=== PATIENT | male | born 1955 | race African-American/Black ===

== ENCOUNTER 2017-04-11 15:06 | Inpatient (IN) | payer MEDICAID ==
[~2017-04-11] VITALS: Ht 167.6 cm; Wt 79.8 kg
[2017-04-11] MEDS ORDERED: KETOROLAC 30MG/ML VIAL IV STA (16:10)
[2017-04-11 16:30] LABS: CHLORIDE 109 mEq/L (98-107)
[2017-04-11 16:32] LABS: INR 1.1; PROTHROMBIN TIME 11.2 sec
[2017-04-11 16:38] LABS: CARBON DIOXIDE 30 mEq/L (21-32); HEMOGLOBIN. 12.6 g/dL (14.0-18.0); MEAN CORPUSCULAR VOLUME 85.1 fL (80.0-94.0); PLATELET 169 x1000/uL (130-400); RED CELL DISTRIBUTION WIDTH 13.4 % (11.6-14.6)
[2017-04-11 16:43] LABS: HEMATOCRIT. 37.9 % (42.0-52.0); MEAN CORPUSCULAR HEMOGLOBIN 28.4 pg (28.0-32.0); MEAN PLATELET VOLUME 8.8 fl (7.4-10.4); RED BLOOD CELL COUNT 4.45 mill/uL (4.7-6.1)
[2017-04-11 17:16] LABS: ATYPICAL LYMPHOCYTES 3
[2017-04-11 17:17] LABS: PLATELET ESTIMATE NORMAL
[2017-04-11] MEDS: AMLODIPINE 10MG TABLET PO SCH (21:24)
[2017-04-11] MEDS ORDERED: ONDANSETRON HCL 4MG/2ML VIAL IV PRN (23:15)
[2017-04-11] MEDS ORDERED: MAGNESIUM/ALUMINUM HYDROXIDE/SIMETHICONE 30ML UDC PO PRN (23:15)
[2017-04-11] MEDS ORDERED: IPRATROPIUM/ALBUTEROL 0.5-3(2.5)MG/3ML NEB INH PRN (23:15)
[2017-04-11] MEDS ORDERED: HYDROCODONE/ACETAMINOPHEN 5/325MG TABLET PO PRN (23:15)
[2017-04-11] MEDS ORDERED: ACETAMINOPHEN 650MG/20.3ML UDC GT PRN (23:15)
[2017-04-11] MEDS ORDERED: GUAIFENESIN 200MG/10ML SUGAR FREE UDC PO PRN (23:15)
[2017-04-11] MEDS ORDERED: ACETAMINOPHEN 650MG SUPP PR PRN (23:15)
[2017-04-12] VITALS: BP 150/97
[2017-04-12 00:13] VITALS: BP 150/97
[2017-04-12] MEDS: NA PHOS,M-B/NA PHOS,DI-BA ENEMA 118ML PR PRN (00:40)
[2017-04-12] MEDS: ACETAMINOPHEN 325MG TABLET PO PRN ×3 (02:36→22:26)
[2017-04-12] MEDS ORDERED: GABA-290 PO (02:44)
[2017-04-12] MEDS ORDERED: IBUP-1509 PO (02:45)
[2017-04-12] MEDS ORDERED: FLUO-124 PO (02:45)
[2017-04-12] MEDS ORDERED: TRAZ-129 PO (02:45)
[2017-04-12 04:00] VITALS: BP_SYST 121; BP_SYST 160; BP_DIAS 101; BP_DIAS 72
[2017-04-12] MEDS: SODIUM CHLORIDE 0.9% INJ 3ML FLUSH IVF SCH ×3 (05:28→21:50)
[2017-04-12 07:40] LABS: TROPONIN I 0.06 ng/mL (0.00-0.04)
[2017-04-12 08:00] VITALS: BP 143/86
[2017-04-12 08:12] LABS: HEMATOCRIT. 37.2 % (42.0-52.0); HEMOGLOBIN. 12.3 g/dL (14.0-18.0); MEAN CORPUSCULAR HEMOGLOBIN 28.2 pg (28.0-32.0); MEAN CORPUSCULAR VOLUME 84.9 fL (80.0-94.0); PLATELET 162 x1000/uL (130-400); RED BLOOD CELL COUNT 4.38 mill/uL (4.7-6.1); RED CELL DISTRIBUTION WIDTH 13.3 % (11.6-14.6)
[2017-04-12 08:24] LABS: CARBON DIOXIDE 28 mEq/L (21-32); CHLORIDE 107 mEq/L (98-107)
[2017-04-12] MEDS: AMLODIPINE 10MG TABLET PO SCH (09:10)
[2017-04-12 10:48] LABS: PLATELET ESTIMATE NORMAL
[2017-04-12] MEDS ORDERED: POTASSIUM CHLORIDE 20MEQ TABLET SR PO SCH (13:30)
[2017-04-12 15:14] LABS: CLARITY URINE CLEAR (CLEAR); COLOR URINE YELLOW (YELLOW); GLUCOSE URINE NEGATIVE (NEGATIVE); KETONES URINE NEGATIVE (NEGATIVE); LEUKOCYTE ESTERASE URINE NEGATIVE (NEGATIVE); NITRITE URINE NEGATIVE (NEGATIVE); OCCULT BLOOD URINE NEGATIVE (NEGATIVE); PROTEIN URINE NEGATIVE (NEGATIVE); SPECIFIC GRAVITY URINE 1.017 (1.005-1.030); UROBILINOGEN URINE 0.2 E.U./dL (0.2-1.0)
[2017-04-12 15:53] LABS: *AMPHETAMINES SCREEN URINE NEGATIVE (NEGATIVE); *BARBITURATES SCREEN URINE NEGATIVE (NEGATIVE); *BENZODIAZEPINES SCREEN URINE NEGATIVE (NEGATIVE); *COCAINE SCREEN URINE NEGATIVE (NEGATIVE); CANNABINOID URINE SCREEN PRESUMTIVE POSITIVE (NEGATIVE); METHADONE URINE SCREEN NEGATIVE (NEGATIVE); OPIATES URINE SCREEN NEGATIVE (NEGATIVE); PHENCYCLIDINE URINE SCREEN NEGATIVE (NEGATIVE)
[2017-04-12 16:00] VITALS: BP 125/84
[2017-04-12 16:36] LABS: TROPONIN I 0.02 ng/mL (0.00-0.04)
[2017-04-12 20:00] VITALS: BP 126/88
[2017-04-13] VITALS: BP 135/79
[2017-04-13 04:00] VITALS: BP 130/84
[2017-04-13] MEDS: SODIUM CHLORIDE 0.9% INJ 3ML FLUSH IVF SCH ×3 (05:51→23:07)
[2017-04-13 08:00] VITALS: BP 130/91
[2017-04-13] MEDS: AMLODIPINE 10MG TABLET PO SCH (08:21)
[2017-04-13] MEDS: ACETAMINOPHEN 325MG TABLET PO PRN ×2 (08:23→14:56)
[2017-04-13 12:00] VITALS: BP 126/75
[2017-04-13 16:00] VITALS: BP 128/79
[2017-04-13 20:00] VITALS: BP 139/85
[2017-04-14] VITALS: BP 133/82
[2017-04-14] MEDS: ACETAMINOPHEN 325MG TABLET PO PRN ×3 (01:19→23:31)
[2017-04-14 04:00] VITALS: BP 161/87
[2017-04-14] MEDS: SODIUM CHLORIDE 0.9% INJ 3ML FLUSH IVF SCH ×3 (06:43→21:09)
[2017-04-14 08:00] VITALS: BP 141/93
[2017-04-14] MEDS: AMLODIPINE 10MG TABLET PO SCH (08:02)
[2017-04-14 08:39] LABS: HEMOGLOBIN. 13.9 g/dL (14.0-18.0); MEAN CORPUSCULAR HEMOGLOBIN 28.2 pg (28.0-32.0); MEAN CORPUSCULAR VOLUME 85.1 fL (80.0-94.0); MEAN PLATELET VOLUME 8.5 fl (7.4-10.4); PLATELET 196 x1000/uL (130-400); RED BLOOD CELL COUNT 4.94 mill/uL (4.7-6.1); RED CELL DISTRIBUTION WIDTH 13.3 % (11.6-14.6)
[2017-04-14 08:55] LABS: CARBON DIOXIDE 33 mEq/L (21-32); CHLORIDE 100 mEq/L (98-107); TROPONIN I 0.02 ng/mL (0.00-0.04)
[2017-04-14 10:53] LABS: PLATELET ESTIMATE NORMAL
[2017-04-14 12:00] VITALS: BP 138/88
[2017-04-14 16:00] VITALS: BP 134/85
[2017-04-14] MEDS: DEXAMETHASONE 4MG/ML 1ML VIAL IV SCH ×2 (18:51→23:31)
[2017-04-14 20:00] VITALS: BP 128/90
[2017-04-15] VITALS (29 sets, daily range): BP systolic 93–189; BP diastolic 64–115
[2017-04-15] MEDS: SODIUM CHLORIDE 0.9% INJ 3ML FLUSH IVF SCH ×3 (06:08→21:25)
[2017-04-15] MEDS: DEXAMETHASONE 4MG/ML 1ML VIAL IV SCH ×3 (06:09→17:42)
[2017-04-15] MEDS: AMLODIPINE 10MG TABLET PO SCH (09:00)
[2017-04-15] MEDS ORDERED: GELATIN SPONGE,ABSORBABLE SZ 100 ONE (12:41)
[2017-04-15] MEDS ORDERED: NORMAL SALINE 0.9% 10 ML SYR ONE ×2 (12:42→15:34)
[2017-04-15] MEDS ORDERED: LIDOCAINE HCL/EPINEPHRINE 0.5%-EPI 1:200,000 50 ML VIAL INFIL ONE ×2 (12:42→15:34)
[2017-04-15] MEDS ORDERED: THROMBIN (BOVINE) 5000 UNITS/VIAL TOP ONE ×2 (12:42→15:33)
[2017-04-15] MEDS ORDERED: BACITRACIN 50,000 UNITS/VIAL ONE ×2 (12:43→15:34)
[2017-04-15] MEDS ORDERED: HYDROMORPHONE HCL/PF 2MG/ML (OR) ONE (14:01)
[2017-04-15] MEDS ORDERED: HYDROMORPHONE HCL/PF 2MG/ML CPJ IV PRN (14:30)
[2017-04-15] MEDS ORDERED: ONDANSETRON HCL 4MG/2ML VIAL IV PRN (14:30)
[2017-04-15] MEDS ORDERED: MEPERIDINE HCL/PF 25MG/ML CPJ IV PRN (14:30)
[2017-04-15] MEDS ORDERED: LABETALOL HCL 20MG/4ML CARPUJECT IV PRN (14:30)
[2017-04-15] MEDS ORDERED: EPHEDRINE SULFATE 50MG/ML VIAL ONE (14:39)
[2017-04-15] MEDS: DEXT 5%/LACTATED RINGERS 1,000 ML IV SCH (16:00)
[2017-04-15] MEDS ORDERED: NICARDIPINE 50 MG in SODIUM CHLORIDE 0.9% 230 ML IV PRN (16:00)
[2017-04-15] MEDS ORDERED: PROPOFOL 10MG/ML 100ML 100 ML IV ONE (16:23)
[2017-04-15 17:43] LABS: BG BASE EXCESS -7.2 mmol/L (-2.0-2.0); BG CARBOXYHEMOGLOBIN 0.2 % (0.5-1.5); BG DEOXYHEMOGLOBIN 0.2 % (0.0-5.0); BG HCO3 ACT 17.2 mmol/L (22.0-26.0); BG METHEMOGLOBIN 0.3 % (0.0-1.5); BG OXYGEN SATURATION 99.8 % (92.0-98.5); BG OXYHEMOGLOBIN 99.3 % (94.0-97.0); BG PCO2 32.1 mmHg (35.0-45.0); BG PH 7.348 (7.350-7.450); BG SAMPLE SITE A-LINE; BG TIDAL VOLUME(mL) 700 mL; BG TOTAL HEMOGLOBIN 14.5 g/dL (12.0-18.0); BG VENT MODE VENT - A/C; BG VENT RATE 12 set
[2017-04-15] MEDS: PROPOFOL 10MG/ML 100ML 100 ML IV PRN ×2 (18:34→21:25)
[2017-04-15 19:50] LABS: HEMATOCRIT. 42.2 % (42.0-52.0); HEMOGLOBIN. 14.1 g/dL (14.0-18.0); MEAN CORPUSCULAR HEMOGLOBIN 28.6 pg (28.0-32.0); MEAN CORPUSCULAR VOLUME 85.8 fL (80.0-94.0); MEAN PLATELET VOLUME 8.3 fl (7.4-10.4); PLATELET 187 x1000/uL (130-400); RED BLOOD CELL COUNT 4.92 mill/uL (4.7-6.1); RED CELL DISTRIBUTION WIDTH 13.5 % (11.6-14.6)
[2017-04-15 20:06] LABS: CARBON DIOXIDE 22 mEq/L (21-32); CHLORIDE 105 mEq/L (98-107)
[2017-04-15] MEDS: MORPHINE SULFATE 2 MG/ML CPJ (NOT FOR IM USE) IV PRN (20:29)
[2017-04-15 21:13] LABS: PLATELET ESTIMATE NORMAL
[2017-04-15] MEDS: CEFAZOLIN 1000MG PREMIX 50 ML IV SCH (21:24)
[2017-04-15] MEDS ORDERED: POTASSIUM CHLORIDE 20MEQ/PACKET PO NR (21:45)
[2017-04-15] MEDS ORDERED: CEFAZOLIN SODIUM 1000MG/VIAL IV SCH (22:00)
[2017-04-16] VITALS (44 sets, daily range): BP systolic 87–175; BP diastolic 67–126
[2017-04-16] MEDS: DEXAMETHASONE 4MG/ML 1ML VIAL IV SCH ×4 (00:09→18:20)
[2017-04-16] MEDS: PROPOFOL 10MG/ML 100ML 100 ML IV PRN (02:58)
[2017-04-16] MEDS: SODIUM CHLORIDE 0.9% INJ 3ML FLUSH IVF SCH ×3 (05:26→21:25)
[2017-04-16] MEDS: CEFAZOLIN 1000MG PREMIX 50 ML IV SCH ×3 (05:30→21:25)
[2017-04-16 06:03] LABS: HEMATOCRIT. 39.7 % (42.0-52.0); HEMOGLOBIN. 12.8 g/dL (14.0-18.0); MEAN CORPUSCULAR VOLUME 87.2 fL (80.0-94.0); MEAN PLATELET VOLUME 8.5 fl (7.4-10.4); PLATELET 163 x1000/uL (130-400); RED BLOOD CELL COUNT 4.56 mill/uL (4.7-6.1); RED CELL DISTRIBUTION WIDTH 13.6 % (11.6-14.6)
[2017-04-16 07:57] LABS: CARBON DIOXIDE 21 mEq/L (21-32); CHLORIDE 106 mEq/L (98-107)
[2017-04-16 08:30] LABS: BG BASE EXCESS -0.8 mmol/L (-2.0-2.0); BG CARBOXYHEMOGLOBIN 0.8 % (0.5-1.5); BG DEOXYHEMOGLOBIN 1.2 % (0.0-5.0); BG FRACTION INSPIRED OXYGEN 40; BG HCO3 ACT 22.1 mmol/L (22.0-26.0); BG METHEMOGLOBIN 0.3 % (0.0-1.5); BG OXYGEN SATURATION 98.8 % (92.0-98.5); BG OXYHEMOGLOBIN 97.7 % (94.0-97.0); BG PCO2 31.5 mmHg (35.0-45.0); BG PH 7.464 (7.350-7.450); BG PO2 146.7 mmHg (75.0-100.0); BG PRESSURE SUPPORT 6; BG SAMPLE SITE A-LINE; BG TOTAL HEMOGLOBIN 13.5 g/dL (12.0-18.0); BG VENT MODE VENT - CPAP
[2017-04-16] MEDS: IPRATROPIUM/ALBUTEROL 0.5-3(2.5)MG/3ML NEB HHN PRN ×3 (08:46→16:27)
[2017-04-16] MEDS: AMLODIPINE 10MG TABLET PO SCH (09:29)
[2017-04-16] MEDS: PANTOPRAZOLE SODIUM 40 MG/VIAL IV SCH (09:29)
[2017-04-16] MEDS: MORPHINE SULFATE 2 MG/ML CPJ (NOT FOR IM USE) IV PRN ×4 (09:30→19:33)
[2017-04-16] MEDS: DEXT 5%/LACTATED RINGERS 1,000 ML IV SCH (09:30)
[2017-04-16] MEDS: HYDROCODONE/ACETAMINOPHEN 5/325MG TABLET PO PRN ×2 (11:27→21:25)
[2017-04-16 12:34] LABS: PLATELET ESTIMATE NORMAL
[2017-04-17] VITALS (24 sets, daily range): BP systolic 120–147; BP diastolic 70–96
[2017-04-17] MEDS: MORPHINE SULFATE 2 MG/ML CPJ (NOT FOR IM USE) IV PRN ×6 (00:06→21:11)
[2017-04-17] MEDS: DEXAMETHASONE 4MG/ML 1ML VIAL IV SCH ×5 (00:22→23:16)
[2017-04-17] MEDS: DEXT 5%/LACTATED RINGERS 1,000 ML IV SCH ×2 (06:21→19:57)
[2017-04-17] MEDS: CEFAZOLIN 1000MG PREMIX 50 ML IV SCH ×3 (06:22→23:16)
[2017-04-17] MEDS: SODIUM CHLORIDE 0.9% INJ 3ML FLUSH IVF SCH ×3 (06:22→23:16)
[2017-04-17] MEDS: HYDROCODONE/ACETAMINOPHEN 5/325MG TABLET PO PRN ×2 (06:31→13:20)
[2017-04-17] MEDS: PANTOPRAZOLE SODIUM 40 MG/VIAL IV SCH (08:58)
[2017-04-17] MEDS: AMLODIPINE 10MG TABLET PO SCH ×2 (08:58→10:51)
[2017-04-18 00:47] VITALS: BP 128/83
[2017-04-18] MEDS: MORPHINE SULFATE 2 MG/ML CPJ (NOT FOR IM USE) IV PRN ×5 (01:04→20:28)
[2017-04-18 04:00] VITALS: BP 139/80
[2017-04-18] MEDS: SODIUM CHLORIDE 0.9% INJ 3ML FLUSH IVF SCH ×3 (05:08→21:55)
[2017-04-18] MEDS: DEXAMETHASONE 4MG/ML 1ML VIAL IV SCH ×3 (05:09→17:59)
[2017-04-18 08:00] VITALS: BP 152/91
[2017-04-18] MEDS: AMLODIPINE 10MG TABLET PO SCH (08:04)
[2017-04-18] MEDS: PANTOPRAZOLE SODIUM 40 MG/VIAL IV SCH (08:06)
[2017-04-18] MEDS: HYDROCODONE/ACETAMINOPHEN 5/325MG TABLET PO PRN ×3 (08:06→21:45)
[2017-04-18] MEDS: DEXT 5%/LACTATED RINGERS 1,000 ML IV SCH (10:43)
[2017-04-18 12:00] VITALS: BP 127/87
[2017-04-18 16:00] VITALS: BP 141/87
[2017-04-18 20:00] VITALS: BP 149/94
[2017-04-18] MEDS: DOCUSATE SODIUM 100MG CAPSULE PO PRN (21:55)
[2017-04-19] VITALS: BP 149/98
[2017-04-19] MEDS: MORPHINE SULFATE 2 MG/ML CPJ (NOT FOR IM USE) IV PRN ×4 (01:28→14:11)
[2017-04-19] MEDS: DEXAMETHASONE 4MG/ML 1ML VIAL IV SCH ×4 (01:34→17:38)
[2017-04-19] MEDS: NA PHOS,M-B/NA PHOS,DI-BA ENEMA 118ML PR PRN (01:40)
[2017-04-19 04:00] VITALS: BP 135/86
[2017-04-19] MEDS: HYDROCODONE/ACETAMINOPHEN 5/325MG TABLET PO PRN ×5 (04:35→21:22)
[2017-04-19] MEDS: DEXT 5%/LACTATED RINGERS 1,000 ML IV SCH (04:37)
[2017-04-19] MEDS: SODIUM CHLORIDE 0.9% INJ 3ML FLUSH IVF SCH ×3 (06:00→21:23)
[2017-04-19 08:00] VITALS: BP 135/92
[2017-04-19] MEDS: FAMOTIDINE 20MG TABLET PO SCH ×2 (08:37→21:22)
[2017-04-19] MEDS: AMLODIPINE 10MG TABLET PO SCH (08:38)
[2017-04-19] MEDS: IBUPROFEN 600MG TABLET PO PRN (10:05)
[2017-04-19] MEDS: CLONIDINE 0.1MG TABLET PO PRN (11:40)
[2017-04-19 12:00] VITALS: BP 167/104
[2017-04-19] MEDS: GABAPENTIN 100MG CAPSULE PO SCH ×2 (14:10→21:22)
[2017-04-19 16:00] VITALS: BP 113/82
[2017-04-19 20:00] VITALS: BP 125/78
[2017-04-19] MEDS: CYCLOBENZAPRINE 10MG TABLET PO SCH (21:23)
[2017-04-20] VITALS: BP 141/92
[2017-04-20] MEDS: DEXAMETHASONE 4MG/ML 1ML VIAL IV SCH ×5 (00:55→23:38)
[2017-04-20] MEDS: MORPHINE SULFATE 2 MG/ML CPJ (NOT FOR IM USE) IV PRN ×4 (00:55→23:43)
[2017-04-20] MEDS: DIPHENHYDRAMINE 50MG/ML VIAL IV PRN (01:46)
[2017-04-20] MEDS: HYDROCODONE/ACETAMINOPHEN 5/325MG TABLET PO PRN ×3 (02:41→20:54)
[2017-04-20 04:00] VITALS: BP 148/94
[2017-04-20] MEDS: GABAPENTIN 100MG CAPSULE PO SCH ×3 (06:18→21:39)
[2017-04-20] MEDS: CYCLOBENZAPRINE 10MG TABLET PO SCH ×3 (06:18→21:39)
[2017-04-20] MEDS: SODIUM CHLORIDE 0.9% INJ 3ML FLUSH IVF SCH ×3 (06:18→21:40)
[2017-04-20 08:00] VITALS: BP 175/110
[2017-04-20] MEDS: AMLODIPINE 10MG TABLET PO SCH (08:27)
[2017-04-20] MEDS: CLONIDINE 0.1MG TABLET PO PRN (08:27)
[2017-04-20] MEDS: FAMOTIDINE 20MG TABLET PO SCH ×2 (08:27→21:39)
[2017-04-20 12:00] VITALS: BP 131/81
[2017-04-20 16:00] VITALS: BP 122/76
[2017-04-20] MEDS: DOCUSATE SODIUM 100MG CAPSULE PO PRN (17:13)
[2017-04-20 20:00] VITALS: BP 118/76
[2017-04-21] VITALS: BP 142/92
[2017-04-21] MEDS: NA PHOS,M-B/NA PHOS,DI-BA ENEMA 118ML PR PRN (00:05)
[2017-04-21 04:00] VITALS: BP 128/83
[2017-04-21] MEDS: DEXAMETHASONE 4MG/ML 1ML VIAL IV SCH ×3 (06:04→17:45)
[2017-04-21] MEDS: GABAPENTIN 100MG CAPSULE PO SCH ×3 (06:04→21:16)
[2017-04-21] MEDS: CYCLOBENZAPRINE 10MG TABLET PO SCH ×3 (06:04→21:16)
[2017-04-21] MEDS: HYDROCODONE/ACETAMINOPHEN 5/325MG TABLET PO PRN ×2 (06:06→10:11)
[2017-04-21] MEDS: SODIUM CHLORIDE 0.9% INJ 3ML FLUSH IVF SCH ×3 (06:16→21:16)
[2017-04-21 08:30] VITALS: BP 145/88
[2017-04-21] MEDS: AMLODIPINE 10MG TABLET PO SCH (09:25)
[2017-04-21] MEDS: FAMOTIDINE 20MG TABLET PO SCH ×2 (10:11→21:16)
[2017-04-21 12:00] VITALS: BP 130/84
[2017-04-21 16:00] VITALS: BP 114/74
[2017-04-21] MEDS: IBUPROFEN 600MG TABLET PO PRN (16:39)
[2017-04-21 20:00] VITALS: BP 132/103
[2017-04-22] VITALS (8 sets, daily range): BP systolic 106–135; BP diastolic 68–85
[2017-04-22] MEDS: DEXAMETHASONE 4MG/ML 1ML VIAL IV SCH ×4 (00:21→18:13)
[2017-04-22] MEDS: IBUPROFEN 600MG TABLET PO PRN ×3 (03:59→20:46)
[2017-04-22] MEDS: SODIUM CHLORIDE 0.9% INJ 3ML FLUSH IVF SCH ×3 (05:59→21:30)
[2017-04-22] MEDS: GABAPENTIN 100MG CAPSULE PO SCH ×3 (05:59→21:30)
[2017-04-22] MEDS: CYCLOBENZAPRINE 10MG TABLET PO SCH ×3 (06:00→21:30)
[2017-04-22] MEDS: ACETAMINOPHEN 325MG TABLET PO PRN ×3 (08:35→23:19)
[2017-04-22] MEDS: FAMOTIDINE 20MG TABLET PO SCH ×2 (08:35→20:46)
[2017-04-22] MEDS: AMLODIPINE 10MG TABLET PO SCH (08:39)
[2017-04-22] MEDS: DIPHENHYDRAMINE 50MG/ML VIAL IV PRN (12:00)
[2017-04-22 18:37] LABS: CARCINO EMBRYONIC ANTIGEN 0.5 ng/ml
[2017-04-22 18:38] LABS: PROSTRATE SPECIFIC AG TOTAL 0.66 ng/mL (0.0-4.0)
== END 2017-04-22 23:40 | DRG 321 ==
LOC: ER 15:32 → EDBEDREQSVC 17:42 → EDBEDREQ 17:42 → CANRESERV 18:28 → ENRESERV 18:28 → 5WST 20:44 → EDBEDREQSVC 20:46 → ENRESERV 21:11 → MICUNO 04-15 14:00 → 5WST 04-17 19:00
PROVIDERS: ADMIT Family Medicine; ATTEND Family Medicine
PROC: BR101ZZ Fluoroscopy of Cervical Spine using Low Osmolar Contrast (ICD-10-PCS; 2017-04-15)
PROC: 0RG2071 Fusion of 2 or more Cervical Vertebral Joints with Autologous Tissue Substitute, Posterior Approach, Posterior Column, Open Approach (ICD-10-PCS; principal; 2017-04-15 13:00)
PROC: 5A1935Z Respiratory Ventilation, Less than 24 Consecutive Hours (ICD-10-PCS; 2017-04-21)
DX: M48.02 Spinal stenosis, cervical region (principal); J95.821 Acute postprocedural respiratory failure; G82.50 Quadriplegia, unspecified; G95.89 Other specified diseases of spinal cord; M47.12 Other spondylosis with myelopathy, cervical region; E44.1 Mild protein-calorie malnutrition; D63.8 Anemia in other chronic diseases classified elsewhere; D72.819 Decreased white blood cell count, unspecified; G89.4 Chronic pain syndrome; Z88.0 Allergy status to penicillin; R26.9 Unspecified abnormalities of gait and mobility; I10 Essential (primary) hypertension; J44.9 Chronic obstructive pulmonary disease, unspecified; K59.00 Constipation, unspecified; M47.22 Other spondylosis with radiculopathy, cervical region; G95.29 Other cord compression; R91.1 Solitary pulmonary nodule; Z68.28 Body mass index [BMI] 28.0-28.9, adult; M54.12 Radiculopathy, cervical region
CPT/HCPCS: 36415; 36600; 71010; 71250; 72040; 72125; 72131; 72141; 73560; 80053; 80305; 81003; 82105; 82375; 82378; 82550; 82805; 83036; 84153; 84443; 84478; 84484; 85025; 85610; 85730; 86850; 86900; 87070; 88304; 88311; 92610; 93005; 93306; 94002; 94003; 94640; 96374; 97112; 97116; 97162; 97164; 97167; 97530; 97535; 99285; A4216; C1713; C9113; J0171; J0690; J1100; J1170; J1200; J1885; J2270; J2704; J3490; J7050; J7121; J7620; L0172; L3908

== ENCOUNTER 2019-02-28 06:18 | Inpatient (IN) | payer MEDICAID ==
[~2019-02-28] VITALS: Ht 167.6 cm; Wt 71.3 kg
[~2019-02-28 06:18] MED LIST: ACET-2708 PO; FLUO-124 PO; GABA-290 PO; IBUP-2028 PO; TRAZ-212 PO
[2019-02-28] MEDS ORDERED: SODIUM CHLORIDE 0.9% 1,000 ML IV ONE (06:55)
[2019-02-28] MEDS ORDERED: ONDANSETRON HCL 4MG/2ML INJ IV STA (06:55)
[2019-02-28] MEDS ORDERED: KETOROLAC 30MG/ML VIAL IV STA (06:55)
[2019-02-28 07:12] LABS: HEMATOCRIT. 44.5 % (42.0-52.0); HEMOGLOBIN. 14.6 g/dL (14.0-18.0); MEAN CORPUSCULAR HEMOGLOBIN 28.7 pg (28.0-32.0); MEAN CORPUSCULAR VOLUME 87.5 fL (80.0-94.0); MEAN PLATELET VOLUME 8.5 fl (7.4-10.4); PLATELET 174 x1000/uL (130-400); RED BLOOD CELL COUNT 5.09 mill/uL (4.7-6.1); RED CELL DISTRIBUTION WIDTH 13.9 % (11.6-14.6)
[2019-02-28 07:20] LABS: PROTHROMBIN TIME 10.5 sec (9.6-11.0)
[2019-02-28 07:22] LABS: CHLORIDE 109 mEq/L (98-107)
[2019-02-28 08:08] LABS: PLATELET ESTIMATE NORMAL
[2019-02-28] MEDS ORDERED: MORPHINE SULFATE 4 MG/ML CPJ (NOT FOR IM USE) IV ONE (08:45)
[2019-02-28] MEDS ORDERED: SODIUM CHLORIDE 0.9% 1,000 ML IV SCH ×2 (12:29→14:45)
[2019-02-28] MEDS ORDERED: ENOXAPARIN 40MG/0.4ML SYR SUBCUT SCH (12:30)
[2019-02-28] MEDS ORDERED: MAGNESIUM/ALUMINUM HYDROXIDE/SIMETHICONE 30ML UDC PO PRN ×2 (12:30→14:45)
[2019-02-28] MEDS ORDERED: CLONIDINE 0.1MG TABLET PO PRN ×2 (12:30→14:45)
[2019-02-28] MEDS ORDERED: ONDANSETRON HCL 4MG/2ML INJ IV PRN ×2 (12:30→14:45)
[2019-02-28] MEDS ORDERED: HYDROMORPHONE HCL/PF 2MG/ML CPJ IV PRN ×2 (12:30→14:45)
[2019-02-28] MEDS ORDERED: ACETAMINOPHEN 325MG TABLET PO PRN (12:30)
[2019-02-28] MEDS ORDERED: DOCUSATE SODIUM 100MG CAPSULE PO PRN ×2 (12:30→14:45)
[2019-02-28] MEDS ORDERED: DIPHENHYDRAMINE 50MG/ML VIAL IV PRN ×2 (12:30→14:45)
[2019-02-28] MEDS ORDERED: IPRATROPIUM/ALBUTEROL 0.5-3(2.5)MG/3ML NEB INH PRN ×2 (12:30→14:45)
[2019-02-28] MEDS ORDERED: GUAIFENESIN 200MG/10ML SUGAR FREE UDC PO PRN ×2 (12:30→14:45)
[2019-02-28] MEDS ORDERED: HYDROMORPHONE HCL/PF 2MG/ML CPJ IV NR (13:00)
[2019-02-28 13:04] LABS: PHOSPHORUS 3.5 mg/dL (2.5-4.9)
[2019-02-28 14:50] VITALS: BP 148/87
[2019-02-28] MEDS: ENOXAPARIN 40MG/0.4ML SYR SUBCUT SCH (16:37)
[2019-02-28] MEDS: KETOROLAC 30MG/ML VIAL IV SCH (17:05)
[2019-02-28 17:23] LABS: CREATINE KINASE MB FRACTION 2.6 ng/mL (0.5-3.6)
[2019-02-28 17:47] VITALS: BP 152/99
[2019-02-28 18:18] LABS: HEPATITIS B SURFACE ANTIGEN NEGATIVE
[2019-02-28 18:48] LABS: HEPATITIS A AB IGM NEGATIVE (NEGATIVE)
[2019-02-28] MEDS: DEXTROSE 50% WATER 50ML SYRINGE IV PRN (18:54)
[2019-02-28 20:00] VITALS: BP 148/89
[2019-02-28] MEDS: INSULIN LISPRO 100 UNITS/ML SUBCUT SCH (21:00)
[2019-02-28] MEDS: BLOOD SUGAR DIAGNOSTIC STRIP TEST SCH (21:36)
[2019-02-28] MEDS: DEXT 5%/0.45% NACL 1000ML 1,000 ML IV SCH (21:51)
[2019-02-28] MEDS ORDERED: KETOROLAC 30MG/ML VIAL IV ONE (22:00)
[2019-03-01] VITALS: BP 128/69
[2019-03-01] MEDS: KETOROLAC 30MG/ML VIAL IV SCH ×3 (01:19→18:25)
[2019-03-01] MEDS: BLOOD SUGAR DIAGNOSTIC STRIP TEST SCH ×4 (07:10→21:33)
[2019-03-01] MEDS: INSULIN LISPRO 100 UNITS/ML SUBCUT SCH ×4 (07:40→21:00)
[2019-03-01 08:00] VITALS: BP 128/72
[2019-03-01] MEDS: DEXT 5%/0.45% NACL 1000ML 1,000 ML IV SCH (10:47)
[2019-03-01 12:00] VITALS: BP 147/86
[2019-03-01] MEDS: DEXTROSE 50% WATER 50ML SYRINGE IV PRN ×2 (12:44→18:13)
[2019-03-01] MEDS: ENOXAPARIN 40MG/0.4ML SYR SUBCUT SCH (15:32)
[2019-03-01 16:00] VITALS: BP 154/82
[2019-03-01 19:30] LABS: AMYLASE 645 IU/L (25-115)
[2019-03-01 20:00] VITALS: BP 113/80
[2019-03-01] MEDS: ACETAMINOPHEN 325MG TABLET PO PRN (21:36)
[2019-03-02] VITALS: BP 124/73
[2019-03-02 04:00] VITALS: BP 129/81
[2019-03-02] MEDS: DEXT 5%/0.45% NACL 1000ML 1,000 ML IV SCH ×2 (04:13→11:37)
[2019-03-02 07:07] LABS: HEMATOCRIT. 37.1 % (42.0-52.0); HEMOGLOBIN. 12.4 g/dL (14.0-18.0); MEAN CORPUSCULAR HEMOGLOBIN 29.1 pg (28.0-32.0); MEAN CORPUSCULAR VOLUME 86.8 fL (80.0-94.0); MEAN PLATELET VOLUME 8.9 fl (7.4-10.4); PLATELET 140 x1000/uL (130-400); RED BLOOD CELL COUNT 4.27 mill/uL (4.7-6.1); RED CELL DISTRIBUTION WIDTH 13.4 % (11.6-14.6)
[2019-03-02] MEDS: BLOOD SUGAR DIAGNOSTIC STRIP TEST SCH ×4 (07:10→21:32)
[2019-03-02 07:35] LABS: CHLORIDE 105 mEq/L (98-107)
[2019-03-02] MEDS: INSULIN LISPRO 100 UNITS/ML SUBCUT SCH ×4 (07:40→21:00)
[2019-03-02] MEDS: ACETAMINOPHEN 325MG TABLET PO PRN (08:16)
[2019-03-02] MEDS: KETOROLAC 30MG/ML VIAL IV SCH ×3 (09:00→17:00)
[2019-03-02] MEDS ORDERED: POTASSIUM CHLORIDE 20MEQ TABLET SR PO SCH (11:30)
[2019-03-02 12:00] VITALS: BP 120/76
[2019-03-02 13:48] LABS: PLATELET ESTIMATE NORMAL
[2019-03-02 16:00] VITALS: BP 158/83
[2019-03-02] MEDS: ENOXAPARIN 40MG/0.4ML SYR SUBCUT SCH (17:35)
[2019-03-02] MEDS: DEXTROSE 50% WATER 50ML SYRINGE IV PRN (19:00)
[2019-03-02 20:00] VITALS: BP 133/70
[2019-03-03] VITALS: BP 141/80
[2019-03-03] MEDS: DEXT 5%/0.45% NACL 1000ML 1,000 ML IV SCH ×2 (01:44→17:02)
[2019-03-03] MEDS: KETOROLAC 30MG/ML VIAL IV SCH (01:44)
[2019-03-03 04:00] VITALS: BP 151/77
[2019-03-03] MEDS: BLOOD SUGAR DIAGNOSTIC STRIP TEST SCH ×3 (06:47→17:14)
[2019-03-03] MEDS: INSULIN LISPRO 100 UNITS/ML SUBCUT SCH ×3 (06:47→17:15)
[2019-03-03 06:54] LABS: CHLORIDE 108 mEq/L (98-107)
[2019-03-03 12:00] VITALS: BP 137/88
[2019-03-03 16:00] VITALS: BP 167/98
[2019-03-03] MEDS: ENOXAPARIN 40MG/0.4ML SYR SUBCUT SCH (17:00)
[2019-03-03 18:53] VITALS: BP 167/98
== END 2019-03-03 19:25 | disposition home or self-care (01) | DRG 282 ==
LOC: ER 06:18 → 6EST 09:23 → EDBEDREQ 09:27 → ENRESERV 13:32 → ER 14:30 → CANBEDREQ 15:12 → 8WST 17:19
PROVIDERS: ADMIT Internal Medicine; ATTEND Internal Medicine
DX: K85.90 Acute pancreatitis without necrosis or infection, unspecified (principal); J98.4 Other disorders of lung; F12.90 Cannabis use, unspecified, uncomplicated; K80.20 Calculus of gallbladder without cholecystitis without obstruction; R00.1 Bradycardia, unspecified; R74.0 Nonspecific elevation of levels of transaminase and lactic acid dehydrogenase [LDH]; N28.1 Cyst of kidney, acquired; Z88.0 Allergy status to penicillin; Z79.899 Other long term (current) drug therapy
CPT/HCPCS: 36415; 74176; 76700; 80048; 80076; 82150; 82248; 82550; 82553; 82962; 83735; 84100; 86705; 86709; 86803; 87340; 93005; 99285; J1170; J1650; J1885; J2270; J2405; J7030